=== PATIENT | male | born 2000 | race Caucasian/White ===

== ENCOUNTER → 2022-10-29 | Outpatient (CLI) | payer OTHER | LOC: COL.VAS 12:00 → COL.PUL 11-05 08:00 | DX: R07.9 Chest pain, unspecified (principal); R06.02 Shortness of breath ==

== ENCOUNTER → 2022-10-29 | Outpatient (CLI) | payer OTHER | LOC: COL.PUL 07:39 | DX: R06.02 Shortness of breath (principal); R07.9 Chest pain, unspecified ==